=== PATIENT | female | born 1985 | race Asian ===

== ENCOUNTER → 2017-05-09 | Emergency (ER) | payer MEDICAID ==
[~2017-05-09] VITALS: Ht 160 cm; Wt 59.9 kg
[~2017-05-09] MED LIST: BACTRIM DS TAB1 EAC1 ORAL; CEPHALEXIN500 MG ORAL; FERROUS SULFAT325 MG ORAL; FOLIC ACID1 MG ORAL; LEVAQUIN750 MG ORAL; MIDOL CAPLET1 EAC1 ORAL
[2017-05-09 18:01] VITALS: BP 129/84
[2017-05-09 18:12] VITALS: BP 129/84
--- NOTE | 2017-05-09 19:03 | Emergency Room Report ---
History of Present Illness General Chief Complaint: General Complaint Source: Caregiver Present Illness HPI 32-year-old female presents ED for evaluation. Mother at bedside states that patient has swelling to her left ear lobe. Noticed this morning. Patient has MR/autism unable to provide any additional history. Mother states that patient does pick at her ear often. Afebrile, no signs of distress. No other aggravating relieving factors. 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, Dermatitis to RT dorsal foot, Obesit Review of Systems All Other Systems: limited Physical Exam Vital Signs Date Time Temp Pulse Resp B/P (MAP) Pulse Ox O2 Delivery O2 Flow Rate FiO2 05/09/17 17:38 97.7 82 19 129/84 99 Room Air 97.7 Sp02 EP Interpretation: reviewed, normal General Appearance: no apparent distress, alert, non-toxic, other - autism Head: normocephalic Eyes: bilateral eye normal inspection, bilateral eye PERRL ENT: hearing grossly normal, normal pharynx, no angioedema, normal voice, other - L auricular fluctuance/swelling/induration Neck: normal inspection Respiratory: normal inspection Cardiovascular #1: normal inspection Gastrointestinal: normal inspection Rectal: deferred Genitourinary: no CVA tenderness Musculoskeletal: normal inspection Neurologic: alert, oriented x3, responsive, motor strength/tone normal, sensory intact, speech normal Psychiatric: normal inspection Skin: other - swelling/erythema L auricle Lymphatic: normal inspection Procedures Incision and Drainage Incision and Drainage : Consent: Verbal Blade Size: 21 guage needle I & D Procedure: betadine prep, sterile drapes applied, sterile dressing applied Wound Location: other - L ear Wound's Depth, Shape: other - abscess Wound Explored: 6cc cloudy red liquid drained Splint Applied?: No Sling Applied?: No Patient Tolerated: Well Complications: None Medical Decision Making Diagnostic Impression: Primary Impression: Abscess of earlobe Qualified Codes: H60.02 - Abscess of left external ear ER Course Hospital Course 32-year-old F presents to ED s/p swelling L earlobe Clinical course Patient placed on stretcher. After initial history, exam reveals female in no acute distress. Patient has autism. On exam there is swelling and erythema to the left auricle. Fluctuant. Betadine applied. Using 21-gauge needle I was able to aspirate approximately 6 mL of cloudy red liquid. Patient tolerated procedure without difficulty. Dressing applied. We'll prescribe Levaquin for pseudomonas coverage and Bactrim MRSA coverage Diagnosis - abscess of earlobe Stable and discharged to home with prescription for levaquin, bactrim. wound Care instructions given. Followup with PMD. Return to ED if any signs of infection develop Last Vital Signs Date Time Temp Pulse Resp B/P (MAP) Pulse Ox O2 Delivery O2 Flow Rate FiO2 05/09/17 18:12 97.7 19 129/84 99 Room Air 97.7 05/09/17 17:38 82 Status: improved Disposition: HOME, SELF-CARE Condition: Stable Scripts Trimethoprim/Sulfamethoxazole 160/800* (BACTRIM DS TABLET*) 1 Each Tablet 1 TAB ORAL Q12H, #14 TAB 0 Refills Prov: TRIP LYONS M.D. 05/09/17 Levofloxacin* (LEVAQUIN*) 750 Mg Tablet 750 MG ORAL DAILY, #7 TAB Prov: TRIP LYONS M.D. 05/09/17 Referrals: NON PHYSICIAN (PCP) Patient Instructions: Abscess, [id number] TRIP LYONS M.D. May 09, 2017 19:03
== END | disposition home or self-care (01) ==
LOC: EMR 18:10
DX: H60.02 Abscess of left external ear (principal); Z88.0 Allergy status to penicillin
CPT/HCPCS: 10060; 99283

== ENCOUNTER 2017-05-15 16:43 | Emergency (ER) | payer MEDICAID ==
[~2017-05-15] VITALS: Ht 152.4 cm; Wt 59.9 kg
--- NOTE | 2017-05-15 17:01 | Emergency Room Report ---
History of Present Illness General Chief Complaint: General Complaint Source: Caregiver (Vincent Encinas) Present Illness HPI refered from primary clinic for repeat I&D and culture and sesnsitivity patient ear getting big again deies fever patient brought in by track production engineer, patient is autistic (Vincent Encinas) Allergies: Coded Allergies: PENICILLINS (Verified Allergy, Intermediate, generalized erythema and rashes, 12/07/15) Patient History Last Menstrual Period: Apr 26 (Vincent Encinas) Nursing Documentation-[facility] Past Medical History: No History, Except For Hx Cardiac Problems: No Hx Cancer: No Hx Gastrointestinal Problems: No Hx Neurological Problems: Yes - Autistic, PICA, 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, Dermatitis to RT dorsal foot, Obesit (Vincent Encinas) Physical Exam Vital Signs Date Time Temp Pulse Resp B/P (MAP) Pulse Ox O2 Delivery O2 Flow Rate FiO2 05/15/17 16:46 98.7 85 16 127/83 94 Room Air 98.8 (Vincent Encinas) Procedures Incision and Drainage Incision and Drainage : Consent: Verbal Blade Size: 18 guage needle I & D Procedure: betadine prep, sterile drapes applied, sterile dressing applied Wound Location: other - L ear Wound's Depth, Shape: other - abscess Wound Explored: bloody discharge Splint Applied?: No Sling Applied?: No Patient Tolerated: Well Complications: None (TRIP LYONS M.D.) Medical Decision Making Diagnostic Impression: Primary Impression: Abscess of earlobe Qualified Codes: H60.02 - Abscess of left external ear ER Course Hospital Course 32-year-old female presents to ED with swelling to left earlobe. Seen here a few days ago for similar presentation Clinical course Patient placed on stretcher. After initial history, physical exam reveals female in no acute distress. autistic. There is fluctuance to the left earlobe. I saw the patient a few days ago with similar presentation. I needle aspirated to reduce the ear Since this was repeat occurrence I did needle aspirate, but they sent fluid culture. discussed findings with track production engineer. I believe patient needs to be followup by ENT as outpatient. Diagnosis - abscess of earlobe Stable and discharged to home. Continue antibiotics as prescribed. Wound Care instructions given. Followup with ENT. Return to ED if any signs of infection develop (TRIP LYONS M.D.) Last Vital Signs Date Time Temp Pulse Resp B/P (MAP) Pulse Ox O2 Delivery O2 Flow Rate FiO2 05/15/17 16:46 98.7 85 16 127/83 94 Room Air 98.8 (Vincetn Encinas) Status: improved (TRIP LYONS M.D.) Disposition: HOME, SELF-CARE Condition: Stable Vincent Encinas May 15, 2017 17:01 TRIP LYONS M.D. May 15, 2017 18:42
[2017-05-15 17:28] VITALS: BP 115/78
== END 2017-05-15 17:15 | disposition home or self-care (01) ==
LOC: EMR 17:15
DX: H60.02 Abscess of left external ear (principal); Z88.0 Allergy status to penicillin
CPT/HCPCS: 10060; 99284

== ENCOUNTER 2017-09-17 15:03 | Emergency (ER) | payer MEDICAID ==
[~2017-09-17] VITALS: Ht 157.5 cm; Wt 63.5 kg
[2017-09-17 15:26] VITALS: BP 157/91
--- NOTE | 2017-09-17 15:28 | Emergency Room Report ---
History of Present Illness General Chief Complaint: General Complaint Source: Patient, Medical Record Present Illness HPI patient is a 32-year-old female with history of autism brought in by caregiver complaining of easy bruising. according to the caregiver patient has been problems with easy bruising present along that she can remember caregiver noticed a bruise on the left upper arm on patient when patient came back from [facility] on Monday. caregiver is concerned about this being a problem for the patient going back to the facility Monday morning. Caregiver is requesting clearance from the ED for patient to go back to [facility] on Monday stating that the patient has a blood disorder. Caregiver denies patient having a fall, abuse, chest pain, SOB, palpitations, and all other associated symptoms. according to ED record patient has had normal platelet count for the past. Patient's caregiver indicates that they have an appointment with patient's primary care provider this coming Monday. 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, Dermatitis to RT dorsal foot, Obesit Review of Systems All Other Systems: negative except mentioned in HPI Physical Exam Vital Signs Date Time Temp Pulse Resp B/P (MAP) Pulse Ox O2 Delivery O2 Flow Rate FiO2 09/17/17 15:05 98.4 78 18 157/91 99 Room Air 98.4 Sp02 EP Interpretation: reviewed, normal General Appearance: normal inspection, well appearing, no apparent distress Head: normocephalic Eyes: bilateral eye normal inspection, bilateral eye PERRL ENT: normal ENT inspection, hearing grossly normal, normal pharynx Neck: normal inspection, full range of motion, supple Respiratory: normal inspection, chest non-tender, lungs clear, normal breath sounds, no rhonchi Cardiovascular #1: normal inspection, normal peripheral pulses, regular rate, rhythm, no edema Gastrointestinal: normal inspection, normal bowel sounds, non tender, soft Rectal: deferred Genitourinary: deferred Musculoskeletal: back normal, digits/nails normal, normal range of motion, non- tender, other - bruise on left upper arm Neurologic: normal inspection, alert, oriented x3, responsive Psychiatric: normal inspection, other - pt is nonverbal Skin: normal inspection, normal color, other - bruise on L upper arm Lymphatic: normal inspection, no adenopathy Medical Decision Making PA Attestation all diagnosis, orders, treatment plans were reviewed by my supervising physician Dr. Bowden Diagnostic Impression: Primary Impression: Contusion, arm, upper ER Course patient is a 32-year-old female with history of autism brought in by caregiver complaining of easy bruising. according to the caregiver patient has been problems with easy bruising present along that she can remember caregiver noticed a bruise on the left upper arm on patient when patient came back from mental health facility on Monday. caregiver is concerned about this being a problem for the patient going back to the facility Monday morning. Caregiver is requesting clearance from the ED for patient to go back to mental health facility on Monday stating that the patient has a blood disorder. Caregiver denies patient having a fall, abuse, chest pain, SOB, palpitations, and all other associated symptoms. according to ED record patient has had normal platelet count for the past. Patient's caregiver indicates that they have an appointment with patient's primary care provider this coming Monday. Ddx considered but are not limited to left upper arm contusion, physical abuse, coagulapathy Vital signs: are WNL, pt. is afebrile H&PE are most consistent with upper arm contusion ORDERS: none required at this time, the diagnosis is clinical ED INTERVENTIONS: None required at this time. DISCHARGE: At this time pt. is stable for d/c to home. Will provide printed patient care instructions, and any necessary prescriptions. Care plan and follow up instructions have been discussed with the patient prior to discharge. caregiver is explained that patient cannot be cleared for coagulopathiesas our records do not indicate any coagulopathies caregiver is explained that she needs to follow-up with patient's primary care physician on Monday for any form of clearance Last Vital Signs Date Time Temp Pulse Resp B/P (MAP) Pulse Ox O2 Delivery O2 Flow Rate FiO2 09/17/17 15:05 98.4 78 18 157/91 99 Room Air 98.4 Status: unchanged Disposition: HOME, SELF-CARE Condition: Stable Patient Instructions: Contusion Additional Instructions: follow up with primary DrAlexi for blood work. patient has had normal platelet count in the past based on our records. to be cleared to go back to the [facility] facility by primary care provider. Karon Beaver Sep 17, 2017 15:28
[2017-09-17 15:39] VITALS: BP 157/91
== END 2017-09-17 15:35 | disposition home or self-care (01) ==
LOC: EMR 15:28
DX: S40.022A Contusion of left upper arm, initial encounter (principal); X58.XXXA Exposure to other specified factors, initial encounter; Y92.89 Other specified places as the place of occurrence of the external cause; Z88.0 Allergy status to penicillin
CPT/HCPCS: 99282

== ENCOUNTER 2017-12-09 15:44 | Emergency (ER) | payer MEDICAID ==
[~2017-12-09] VITALS: Ht 160 cm; Wt 61.2 kg
[2017-12-09 16:02] VITALS: BP 122/86
[2017-12-09] MEDS ORDERED: BACITRACIN-P28.35 GM TP (16:19)
[2017-12-09] MEDS ORDERED: HYDROCORTISONE-30 GM TOPIC (16:19)
[2017-12-09] MEDS ORDERED: BACTRIM DS TAB1 EAC1 ORAL (16:19)
--- NOTE | 2017-12-09 16:19 | Emergency Room Report ---
History of Present Illness General Chief Complaint: Skin Rash/Abscess Present Illness HPI 32-year-old female patient presents ER brought in by lard mixer from assisted living facility. Complaining of possible bug bites on bilateral lower extremities. Reports redness on right lower Nicole. Patient is not verbal per lard mixer, does not report any complaints. Occupational Therapy Assistant states was noticed today, has not taken any medication. Denies fever, chest pain, shortness of breath. Denies history of diabetes. Denies vomiting. does not know tetanus vaccination status. 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, Dermatitis to RT dorsal foot, Obesit Review of Systems All Other Systems: negative except mentioned in HPI Physical Exam Vital Signs Date Time Temp Pulse Resp B/P (MAP) Pulse Ox O2 Delivery O2 Flow Rate FiO2 12/09/17 15:53 98.5 85 16 122/86 97 Room Air 98.4 Sp02 EP Interpretation: reviewed, normal General Appearance: well appearing, no apparent distress, alert, GCS 15, non- toxic Head: normocephalic, atraumatic Eyes: bilateral eye normal inspection, bilateral eye PERRL ENT: hearing grossly normal, normal pharynx, no angioedema, normal voice, uvula midline, moist mucus membranes Neck: full range of motion Respiratory: lungs clear, normal breath sounds, no rhonchi, no respiratory distress, no accessory muscle use, no wheezing, speaking full sentences Cardiovascular #1: regular rate, rhythm, no edema Cardiovascular #2: 2+ dorsalis pedis (R), 2+ dorsalis pedis (L) Musculoskeletal: back normal, digits/nails normal, gait/station normal, normal range of motion, non-tender Skin: other - erythematous urticaria noted over right posterior heel, no fluctuance or induration, no drainage, no warmth to touch, no tenderness to palpation; left medial ankle: circular <1 cm erythematous urticaria noted, no surrounding erythema or edema, no drainage, no fluctuance or induration; no vesicles, no blisters, no target sign Medical Decision Making PA Attestation Dr. Torres is my supervising Physician whom patient management has been discussed with. Diagnostic Impression: Primary Impression: Bug bite ER Course Pt. presents to the ED c/o bug bite. Ddx considered but are not limited to atopic dermatitis, bug bite, urticaria, allergic reaction, cellulitis, abscess. Vital signs: are WNL, pt. is afebrile ER COURSE: Consult with Dr. Torres, likely bug bite causing localized reaction, will provide antibiotics cover for possible infection. no fluctuance or induration, does not require drainage at this time. Provided with Tdap in the ER. Do not scratch, apply cool compresses to affected area. Followup with PCP and request referral to derm. DISCHARGE: -Rx given for Bactrim -Rx given for Bacitracin -Rx given for hydrocortisone cream. Do not apply to face or skin creases. At this time pt. is stable for d/c to home. Patient resting comfortably, in no acute distress, nontoxic appearing. Care plan and follow up instructions have been discussed with the patient prior to discharge. Patient provided with printed patient care instructions, and any necessary prescriptions. Patient instructed to follow-up with primary care provider in 3 - 5 days. Patient questions asked and answered. Patient reports understanding and agreement to treatment plan. ER precautions given. Patient instructed to return to ER immediately for any new or worsening of symptoms including but not limited to increasing SOB, persistent fever. - Please note that this Emergency Department Report was dictated using [employer] field technology software, occasionally this can lead to erroneous entry secondary to interpretation by the dictation equipment. Last Vital Signs Date Time Temp Pulse Resp B/P (MAP) Pulse Ox O2 Delivery O2 Flow Rate FiO2 12/09/17 16:02 98.4 85 16 122/86 97 Room Air 98.4 Disposition: HOME, SELF-CARE Condition: Stable Scripts Hydrocortisone/Aloe Vera 1%* (HYDROCORTISONE-ALOE 1% CREAM*) Y Cr 1 APPLIC TOPIC Q6H PRN for Itching, #30 GM Prov: Vincent Encinas 12/09/17 Bacitracin/Polymyxin B Sulfate (BACITRACIN-POLYMYXIN OINTMENT) 28.35 Gm Oint...g. 1 APPLIC TP BID, #28 GM Prov: Vincent Encinas 12/09/17 Trimethoprim/Sulfamethoxazole 160/800* (BACTRIM DS TABLET*) 1 Each Tablet 1 TAB ORAL TWICE A DAY for 7 Days, #14 TAB Prov: Vincent Encinas 12/09/17 Patient Instructions: Insect Bite, [id number] Additional Instructions: Followup with primary care provider in 3 -5 days. Request referral to dermatology. Do not scratch or itch. Apply cool compresses to affected area. Take medications as directed. Do not apply medication to face or skin creases. SE Benadryl drowsiness, do not take prior to drinking, driving, operating heavy machinery. Patient questions asked and answered. ER precautions given, patient instructed to return to ER immediately for any new or worsening of symptoms. [facility] Vincent Encinas Dec 09, 2017 16:19
[2017-12-09] MEDS ORDERED: Tetanus/Diptheria/Pertussis Vaccine 0.5ml Syr IM ONE (16:30)
[2017-12-09 16:37] VITALS: BP 122/86
== END 2017-12-09 16:40 | disposition home or self-care (01) ==
LOC: EMR 16:20
DX: S80.862A Insect bite (nonvenomous), left lower leg, initial encounter (principal); S80.861A Insect bite (nonvenomous), right lower leg, initial encounter; W57.XXXA Bitten or stung by nonvenomous insect and other nonvenomous arthropods, initial encounter; Y93.9 Activity, unspecified; Y92.099 Unspecified place in other non-institutional residence as the place of occurrence of the external cause; Z23 Encounter for immunization
CPT/HCPCS: 90471; 90715; 99283